=== PATIENT | male | born 1945 | race Caucasian/White ===

== ENCOUNTER 2019-09-10 22:30 | Inpatient (IN) | payer MEDICARE ==
[~2019-09-10] VITALS: Ht 175.3 cm; Wt 76.8 kg
--- NOTE | 2019-09-10 23:14 | NUR ---
Patient is A&O x3, SOLORZANO but is weak. Reports chest pain starting @ 1900 and a history of brain cancer.
[2019-09-10 23:37] LABS: PARTIAL THROMBOPLASTIN TIME 27 SECONDS (22-32)
[2019-09-10 23:50] LABS: BASOPHILS % (AUTO) 0.7 % (0-1); EOSINOPHILS % (AUTO) 0.6 % (0-6); HEMATOCRIT 31.8 % (42.0-52.0); HEMOGLOBIN 11.2 g/dl (14.0-17.9); LYMPHOCYTES # (AUTO) 0.4 X10'3 (1.1-4.8); LYMPHOCYTES % (AUTO) 7.6 % (21-51); MEAN CORPUSCULAR HEMOGLOBIN 35.6 PG (27.0-31.0); MEAN CORPUSCULAR HGB CONC 35.1 g/dL (33.0-36.5); MEAN CORPUSCULAR VOLUME 101.2 FL (78-98); MEAN PLATELET VOLUME 7.4 FL (7.4-10.4); MONOCYTES # (AUTO) 0.8 X10'3 (0-0.9); MONOCYTES % (AUTO) 13.1 % (2-12); NEUTROPHILS # (AUTO) 4.6 X10'3 (1.8-7.7); PLATELET COUNT 170 X10'3 (140-440); RED BLOOD COUNT 3.14 X10'6 (4.70-6.10); RED CELL DISTRIBUTION WIDTH 12.8 % (11.5-14.5); WHITE BLOOD COUNT 5.9 X10'3 (4.5-11.0)
[2019-09-10] MEDS ORDERED: aspirin 81mg tab.chew PO ONE (23:55)
[2019-09-11 00:08] LABS: ALANINE AMINOTRANSFERASE 52 U/L (12-78); ALBUMIN/GLOBULIN RATIO 0.9 (1.1-1.5); ALKALINE PHOSPHATASE 61 IU/L (46-116); ANION GAP 8 (8-16); ASPARTATE AMINO TRANSFERASE 25 U/L (10-37); BILIRUBIN,TOTAL 0.8 MG/DL (0.1-1.0); BLOOD UREA NITROGEN 24 MG/DL (7-18); BUN/CREATININE RATIO 23.3 (5.4-32.0); CALCIUM 8.9 MG/DL (8.5-10.1); CHLORIDE 103 MMOL/L (99-107); CREATININE 1.03 MG/DL (0.60-1.10); GLUCOSE 113 MG/DL (70-104); POTASSIUM 3.7 MMOL/L (3.5-5.1); SODIUM 140 MMOL/L (135-145); TOTAL CARBON DIOXIDE 28.7 MMOL/L (24-32); TOTAL PROTEIN 6.4 G/DL (6.4-8.2); eGFR 71 ML/MIN
[2019-09-11] MEDS ORDERED: COLC0.6T69 PO (00:42)
[2019-09-11] MEDS ORDERED: RANO500T3 PO (00:42)
[2019-09-11] MEDS ORDERED: METO25TA6 PO (00:42)
[2019-09-11] MEDS ORDERED: DRON400T2 PO (00:42)
[2019-09-11] MEDS ORDERED: DOCU100C41 PO (00:42)
[2019-09-11] MEDS ORDERED: ROSU40TA PO (00:42)
[2019-09-11] MEDS ORDERED: MORP15TA PO (00:42)
[2019-09-11] MEDS ORDERED: HYDR-3968 PO (00:42)
[2019-09-11] MEDS ORDERED: ENAL2.5T PO (00:42)
[2019-09-11] MEDS ORDERED: normal saline 1000ML IV soln IVB ONE ×2 (01:45→02:05)
--- NOTE | 2019-09-11 02:00 | NUR ---
Patient with Dr. East, pending hospital admit.
[2019-09-11] MEDS ORDERED: dexamethasone 4mg/ml inj IV ONE (02:10)
[2019-09-11] MEDS ORDERED: dexamethasone 4mg/ml inj IV SCH (02:10)
[2019-09-11] MEDS ORDERED: magnesium hydroxide 30ml (MOM) UD suspension PO PRN (02:15)
[2019-09-11] MEDS ORDERED: acetaminophen 325mg tablet PO PRN (02:15)
[2019-09-11] MEDS ORDERED: mag hydrox/Alum hydrox/simeth 30ml oral suspension PO PRN (02:15)
[2019-09-11] MEDS ORDERED: magnesium Cl slow-release 64mg tablet PO PRN (02:15)
[2019-09-11] MEDS ORDERED: ondansetron/PF 4mg/2ml inj IV PRN (02:15)
[2019-09-11] MEDS ORDERED: morphine 2 MG/ML inj. syringe IV PRN (02:15)
[2019-09-11] MEDS ORDERED: potassium Cl 20 mEq SR tablet PO PRN ×2 (02:15)
--- NOTE | 2019-09-11 02:23 | NUR ---
Patient reports he is having chest pain again 05/09, radiation down left arm and up left jaw. Per Dr. Jolly get another EKG
[2019-09-11] MEDS ORDERED: morphine IR (immed. release) 30mg tablet PO PRN ×2 (02:30)
[2019-09-11] MEDS: nitroGLYCERIN 0.4mg SUBLingual tab SL PRN ×3 (02:45→21:01)
[2019-09-11 03:30] VITALS: BP 101/57
--- NOTE | 2019-09-11 03:30 | NUR ---
PATIENT ARRIVED TO FLOOR VIA GURNEY FROM ED WITH SON AND WITH HIM. PATIENT AMBULATED WITH 1 PERSON ASSIST TO BED. PATIENT ORIENTED TO ROOM AND UNIT. VSS. ASSESSMENT COMPLETED CHARTED BY DOMENICA HEWITT. NO C/O OF CHEST PAIN AT THIS TIME. WILL CONTINUE TO MONITOR.
--- NOTE | 2019-09-11 04:25 | NUR ---
PATIENT C/O CP 5/10. BP 119/66. NITRO GIVEN AND CHEST PAIN RESOLVED. LAB IN TO DRAW 6 HOUR TROPONIN AT THIS TIME. 6 HOUR EKG DONE AT THIS TIME AND TAKEN TO DR. LAWLER. WILL CONTINUE TO MONITOR.
[2019-09-11 06:00] VITALS: BP 103/62
--- NOTE | 2019-09-11 06:34 | NUR ---
Problems reprioritized. Patient report given, questions answered & plan of care reviewed with Blanca HEWITT.
[2019-09-11] MEDS: heparin, porcine 5000 units/ml vial SQ SCH ×2 (08:00→20:00)
[2019-09-11] MEDS: K and/or MAG REPLACEMENT MC SCH (08:00)
[2019-09-11 08:09] LABS: ALBUMIN 2.6 G/DL (3.4-5.0); ANION GAP 9 (8-16); BLOOD UREA NITROGEN 24 MG/DL (7-18); BUN/CREATININE RATIO 24.7 (5.4-32.0); CALCIUM 8.3 MG/DL (8.5-10.1); CHLORIDE 106 MMOL/L (99-107); CREATININE 0.97 MG/DL (0.60-1.10); GLUCOSE 129 MG/DL (70-104); MAGNESIUM 1.8 MG/DL (1.5-2.4); SODIUM 140 MMOL/L (135-145); TOTAL CARBON DIOXIDE 25.4 MMOL/L (24-32); eGFR 76 ML/MIN
[2019-09-11 08:16] LABS: BASOPHILS % (AUTO) 0.5 % (0-1); EOSINOPHILS % (AUTO) 0.3 % (0-6); HEMATOCRIT 27.7 % (42.0-52.0); HEMOGLOBIN 9.8 g/dl (14.0-17.9); LYMPHOCYTES # (AUTO) 0.3 X10'3 (1.1-4.8); MEAN CORPUSCULAR HEMOGLOBIN 35.4 PG (27.0-31.0); MEAN CORPUSCULAR HGB CONC 35.5 g/dL (33.0-36.5); MEAN CORPUSCULAR VOLUME 99.8 FL (78-98); MEAN PLATELET VOLUME 7.9 FL (7.4-10.4); MONOCYTES # (AUTO) 0.3 X10'3 (0-0.9); MONOCYTES % (AUTO) 5.8 % (2-12); NEUTROPHILS # (AUTO) 4.7 X10'3 (1.8-7.7); NEUTROPHILS % (AUTO) 88.4 % (42-75); PLATELET COUNT 138 X10'3 (140-440); RED BLOOD COUNT 2.78 X10'6 (4.70-6.10); RED CELL DISTRIBUTION WIDTH 12.9 % (11.5-14.5); WHITE BLOOD COUNT 5.3 X10'3 (4.5-11.0)
[2019-09-11] MEDS: aspirin 325mg tablet PO SCH (08:30)
[2019-09-11] MEDS: lisinopril 5mg tablet PO SCH ×2 (08:46→20:00)
[2019-09-11] MEDS: atorvastatin 20mg tablet PO SCH (08:46)
[2019-09-11] MEDS: dronedarone hcl 400mg tablet PO SCH ×2 (08:46→20:38)
[2019-09-11] MEDS: docusate sod 100mg capsule PO SCH (08:46)
[2019-09-11] MEDS: metoprolol tartrate 12.5mg (1/2 tablet) PO SCH ×2 (08:47→20:44)
[2019-09-11] MEDS: colchicine 0.6mg tablet PO SCH (08:50)
[2019-09-11] MEDS: ranolazine 500mg SR tablet (Q12H) PO SCH ×2 (08:50→20:38)
--- NOTE | 2019-09-11 09:06 | NUR ---
Patient refused ASA 325mg and Heparin. Per conversation with patient, states "radiologist in [place] [facility] has advised patient to not receive anticoagulation therapy due to brain lesions". Patient is requesting ASA 81mg chewable, this is a home med.
[2019-09-11] MEDS: dexamethasone 4mg/ml inj IV SCH ×2 (09:52→20:31)
--- NOTE | 2019-09-11 10:00 | NUR ---
Dr. Renae at bedside and discussing plan of care. patient wants to get back to [place] safely, but MD says he will consult Dr. Neville for next steps (possible Lexiscan tomorrow). Waiting for last troponin to be drawn and resulted. Patient denies chest pain at this time and refuses blood thinners because of brain lesions. Will continue to monitor.
[2019-09-11 11:00] VITALS: BP 104/63
--- NOTE | 2019-09-11 11:01 | NUR ---
Patient in room MED 314. I have received report from KASH Brenner and had the opportunity to ask questions and assume patient care.
[2019-09-11 12:05] LABS: CHOL/HDL RATIO 2.4 (0.00-4.99); CHOLESTEROL 133 MG/DL (0-200); HDL CHOLESTEROL 56 MG/DL (35-60); LDL CHOLESTEROL 65 MG/DL (50-100); TRIGLYCERIDES 93 MG/DL (20-135)
--- NOTE | 2019-09-11 13:52 | NUR ---
Page to ECHO [id number]. Pt. needs an ECHO. Thank You.
[2019-09-11 15:00] VITALS: BP 100/59
[2019-09-11] MEDS: clopidogrel 75mg tablet PO SCH (15:21)
[2019-09-11] MEDS: morphine 2 MG/ML inj. syringe IV PRN (15:32)
[2019-09-11 18:00] VITALS: BP 110/64
--- NOTE | 2019-09-11 18:10 | NUR ---
Patient in room MED 313. I have received report from KASH Reyes and had the opportunity to ask questions and assume patient care.
--- NOTE | 2019-09-11 18:28 | NUR ---
Problems reprioritized. Patient report given, questions answered & plan of care reviewed with KASH Walker.
[2019-09-11] MEDS: morphine IR (immed. release) 30mg tablet PO SCH (20:45)
--- NOTE | 2019-09-11 21:01 | NUR ---
patient has chest pain 8/10. 1 nitro sublingual given. EKG done. chest pain reduced to 2/10.
[2019-09-11 22:00] VITALS: BP 88/53
[2019-09-12] MEDS: nitroGLYCERIN 0.4mg SUBLingual tab SL PRN ×6 (00:55→06:49)
--- NOTE | 2019-09-12 00:55 | NUR ---
Patient is having chest pain 03/09. BP 151/91 (111). HR 102. One Sublingual nitroglycerin given. Will continue to monitor.
[2019-09-12 02:00] VITALS: BP 89/54
--- NOTE | 2019-09-12 03:00 | NUR ---
PT C/O STERNAL CHEST PAIN 5-6/10, RADIATING TO JAW. NITRO GIVEN X1 DOSE AND PAIN RELIEVED. WILL CONTINUE TO MONITOR.
[2019-09-12] MEDS: morphine 2 MG/ML inj. syringe IV PRN (03:15)
--- NOTE | 2019-09-12 03:58 | NUR ---
NOTIFIED PAGER ID: [phone] MESSAGE: Darcei Parikh is having chest pain, nitro given and pain is relieved. EKG being preformed. KASH Walker ext. [phone] Thank you
--- NOTE | 2019-09-12 04:03 | NUR ---
DR. MORALES UP TO LOOK AT EKG. WILL DRAW AM TROPONIN AT THIS TIME. NO NEW ORDERS.
[2019-09-12 04:53] LABS: BASOPHILS % (AUTO) 0.1 % (0-1); EOSINOPHILS % (AUTO) 0 % (0-6); HEMATOCRIT 26.7 % (42.0-52.0); HEMOGLOBIN 9.3 g/dl (14.0-17.9); LYMPHOCYTES # (AUTO) 0.3 X10'3 (1.1-4.8); LYMPHOCYTES % (AUTO) 4.3 % (21-51); MEAN CORPUSCULAR HEMOGLOBIN 35.2 PG (27.0-31.0); MEAN CORPUSCULAR VOLUME 100.5 FL (78-98); MEAN PLATELET VOLUME 7.6 FL (7.4-10.4); MONOCYTES # (AUTO) 0.4 X10'3 (0-0.9); NEUTROPHILS # (AUTO) 5.2 X10'3 (1.8-7.7); NEUTROPHILS % (AUTO) 88.6 % (42-75); PLATELET COUNT 169 X10'3 (140-440); RED BLOOD COUNT 2.65 X10'6 (4.70-6.10); RED CELL DISTRIBUTION WIDTH 12.6 % (11.5-14.5); WHITE BLOOD COUNT 5.9 X10'3 (4.5-11.0)
[2019-09-12 05:11] LABS: ALANINE AMINOTRANSFERASE 39 U/L (12-78); ALBUMIN 2.6 G/DL (3.4-5.0); ALBUMIN/GLOBULIN RATIO 0.8 (1.1-1.5); ALKALINE PHOSPHATASE 51 IU/L (46-116); ANION GAP 7 (8-16); ASPARTATE AMINO TRANSFERASE 18 U/L (10-37); BILIRUBIN,TOTAL 0.6 MG/DL (0.1-1.0); BLOOD UREA NITROGEN 19 MG/DL (7-18); BUN/CREATININE RATIO 23.5 (5.4-32.0); CALCIUM 8.5 MG/DL (8.5-10.1); CHLORIDE 107 MMOL/L (99-107); CHOL/HDL RATIO 2.2 (0.00-4.99); CHOLESTEROL 128 MG/DL (0-200); CREATININE 0.81 MG/DL (0.60-1.10); GLUCOSE 151 MG/DL (70-104); HDL CHOLESTEROL 57 MG/DL (35-60); LDL CHOLESTEROL 61 MG/DL (50-100); MAGNESIUM 1.7 MG/DL (1.5-2.4); POTASSIUM 3.6 MMOL/L (3.5-5.1); SODIUM 139 MMOL/L (135-145); TOTAL PROTEIN 5.7 G/DL (6.4-8.2); TRIGLYCERIDES 64 MG/DL (20-135); eGFR > 90 ML/MIN
--- NOTE | 2019-09-12 05:17 | NUR ---
Patient having chest pain 2/10. one nitroglycerin sublingual given. pain 0/10 now.
[2019-09-12 06:00] VITALS: BP 125/73
--- NOTE | 2019-09-12 06:15 | NUR ---
Problems reprioritized. Patient report given, questions answered & plan of care reviewed with KASH Villalobos.
--- NOTE | 2019-09-12 06:15 | NUR ---
Patient in room MED 313. I have received report from KASH Walker and had the opportunity to ask questions and assume patient care.
--- NOTE | 2019-09-12 06:50 | NUR ---
PATIENT C/O CHEST PAIN 02/06. STERNAL PAIN, RADIATING TO JAW. SL NITRO GIVEN ORDERED WHICH RELIEVED PATIENT'S PAIN. WILL CONTINUE TO MONITOR. BP 116/63.
[2019-09-12] MEDS: colchicine 0.6mg tablet PO SCH (08:00)
[2019-09-12] MEDS: heparin, porcine 5000 units/ml vial SQ SCH ×2 (08:00→09:04)
[2019-09-12] MEDS: K and/or MAG REPLACEMENT MC SCH (08:00)
[2019-09-12] MEDS: docusate sod 100mg capsule PO SCH (08:41)
[2019-09-12] MEDS: dexamethasone 4mg/ml inj IV SCH (08:41)
[2019-09-12] MEDS: atorvastatin 20mg tablet PO SCH (08:45)
[2019-09-12] MEDS ORDERED: aspirin 81mg tablet.DR PO SCH (08:45)
[2019-09-12] MEDS: metoprolol tartrate 12.5mg (1/2 tablet) PO SCH (08:45)
[2019-09-12] MEDS: dronedarone hcl 400mg tablet PO SCH (08:46)
[2019-09-12] MEDS: ranolazine 500mg SR tablet (Q12H) PO SCH (08:46)
[2019-09-12] MEDS: clopidogrel 75mg tablet PO SCH (08:46)
[2019-09-12] MEDS: morphine IR (immed. release) 30mg tablet PO SCH (08:46)
[2019-09-12] MEDS: aspirin 325mg tablet PO SCH (08:47)
[2019-09-12] MEDS ORDERED: isosorbide mononitrate 30mg tab.SR.24H PO SCH (09:10)
[2019-09-12] MEDS ORDERED: pantoprazole 40mg Tablet.DR PO SCH (09:20)
--- NOTE | 2019-09-12 10:22 | NUR ---
PAGER ID: [phone] MESSAGE: Dr. Pena-pt in rm 313 on [facility], Geni Parikh. would like to see you along with family. Would like to go [place], has appt with his [employer]er in [place]. Please advise. Thank you, Praveen Villalobos RN
[2019-09-12] MEDS ORDERED: ISOS30TA6 PO (10:25)
[2019-09-12] MEDS ORDERED: CLOP75TA35 PO (10:25)
[2019-09-12] MEDS ORDERED: NITR0.4T51 SL (10:25)
[2019-09-12] MEDS ORDERED: ASPI-1071 PO (10:25)
--- NOTE | 2019-09-12 10:27 | NUR ---
Dr. Dukes will come see the patient and get discharge ready for patient.
[2019-09-12] MEDS ORDERED: PANT40TA4 PO (10:34)
[2019-09-12] MEDS ORDERED: MAG30ORA PO (10:34)
[2019-09-12 11:00] VITALS: BP 104/61
--- NOTE | 2019-09-12 12:32 | NUR ---
Patient discharged. All discharge instructions printed out and verbally gone over with the patient and family. New medications were gone over and prescriptions sent with the patient. All patient belongings taken with the family and the patient left the floor in a wheelchair with auxillary volunteer and patient son at the same time. Patient was alert and oriented and in stable condition.
[2019-09-13] MEDS ORDERED: aspirin 81mg tablet.DR PO SCH (08:30)
== END 2019-09-12 12:32 | disposition home or self-care (01) | DRG 281 ==
LOC: ER 22:31 → ED HOLD 09-11 02:12 → MED 3N 09-11 03:30
PROVIDERS: ADMIT Internal Medicine; ATTEND Family Medicine
DX: I21.4 Non-ST elevation (NSTEMI) myocardial infarction (principal); C79.31 Secondary malignant neoplasm of brain; C34.90 Malignant neoplasm of unspecified part of unspecified bronchus or lung; D64.9 Anemia, unspecified; R51 Headache; R79.89 Other specified abnormal findings of blood chemistry; E78.5 Hyperlipidemia, unspecified; G62.9 Polyneuropathy, unspecified; I10 Essential (primary) hypertension; I25.119 Atherosclerotic heart disease of native coronary artery with unspecified angina pectoris; I48.0 Paroxysmal atrial fibrillation; Z79.899 Other long term (current) drug therapy; Z87.891 Personal history of nicotine dependence; Z92.3 Personal history of irradiation; Z95.1 Presence of aortocoronary bypass graft
CPT/HCPCS: 36415; 71045; 80048; 80053; 80061; 83036; 83735; 83880; 84443; 84484; 85025; 85610; 85730; 87081; 93005; 93306; 99285; G0378; J1100; J1644; J2270